=== PATIENT | male | born 1975 | race Caucasian/White ===

== ENCOUNTER 2016-08-12 21:31 | Emergency (ER) | payer OTHER ==
[2016-08-12 22:03] VITALS: RESP 18; TEMP 98.2
[2016-08-12] MEDS ORDERED: Lidocaine 1% 10 MG/ML - 20 ML VIAL SUBCUT ONE (22:49)
[2016-08-12] MEDS ORDERED: TRIAMCINOLONE ACETONIDE 40 MG/1 ML IAC ONE (22:49)
--- NOTE | 2016-08-12 23:19 | PDOC ---
Upper Ext Injury HPI - General Chief Complaint: Upper Extremity Problem/Injury Stated Complaint: LEFT ELBOW PAIN Date Seen by Provider: 08/12/16 Time Seen by Provider: 21:50 Source: POSITIVE: Patient Exam Limitations: POSITIVE: No limitations Nurse's Notes Reviewed & Considered: Yes - History of Present Illness Initial Comments: The patient is a 41 year old male. He states that for the past 4 months he has had pain to the medial aspect of his left elbow. 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 He states that his pain is often exacerbated by lifting furniture. He states he had some paresthesias of the left hand and forearm at the onset of his symptoms, but none now. No motor deficits. Have you received a tetanus shot in the past 10 years?: No Body Location Affected: REPORTS: Upper Extremity (L) Timing: REPORTS: Constant, Getting Worse Duration: >1 week (4 months according to patient) Severity: Moderate Quality: REPORTS: "Pain" Context of Injury: REPORTS: Direct Blow (Possibly, as above) Modifying Factors: REPORTS: Other (Exacerbated by direct palpation) Associated Symptoms: DENIES: Arm (R), Arm (L), Tingling Distally, Numbness Distally, Loss of Feeling, Loss of Power, Other Any Prior Injuries Related to Current Complaint?: No - Patient Home Medications Home Medications: Home Medications Sumatriptan Succinate [Imitrex] 25 mg PO PRN PRN 01/27/12 Albuterol Sulfate [Proair Hfa] 1 puff INH Q4-6H #1 puff 06/22/16 - Patient Allergies Allergies/Adverse Reactions: Allergies Allergy/AdvReac Type Severity Reaction Status Date / Time No Known Allergies Allergy Verified 08/12/16 21:58 Past Medical History - heen HEENT History: Other (please comment) Additional HEENT History: WEARS GLASSES Cardiovascular History: Hypertension, Other (please comment) Additional Cardiovasular History: pt states heart murmur. STATES HTN AND SUPPOSE TO TAKE MEDS BUT DOESN'T Respiratory History: Denies History, Other (please comment) Additional Respiratory History: smoker Gastrointestinal History: Denies History Genitourinary History: Denies History Endocrine History: Denies History Musculoskeletal History: Back Pain, Carpal Tunnel, Other (please comment) Prosthesis or Implant: No Additional Musculoskeletal History: CHRONIC LOWER BACK PAIN Neurological History: Migraines Blood Disorders: Denies History Psychiatric History: Depression, Other (please comment) Additional Psychiatric History: Borderline personality disorder--followed by Dr. Mclaughlin in [place], for which he takes Lamictal and Depakote. History of Sexually Transmitted Diseases: No Male Reproductive History: Denies History Cancer History: Denies History In Past Year Been Physically Harmed or Verbally Threatened: No History of MDRO: Yes Other Type of MDRO: IN GROIN AND LEFT 5TH FINGER History of Other Communicable Diseases: No Tobacco Use: Current Every Day Smoker Alcohol Use: Rarely Substance Use Type: None Previous Surgical History: Yes Type / Date of Surgery: carpal tunnel bilat Anesthesia Reactions: No Malignant Hyperthermia: No Significant Family History: Cancer, Other (please comment) Additional Family History: BROTHER HAD ARRYTHMIA WHEN YOUNG Past Medical History Reviewed: Reviewed - No Changes ROS - Limitations ROS Limitations: No Limitations Constitution: REPORTS: Denies Symptoms Cardiovascular: REPORTS: Denies Cardiac Symptoms Respiratory: REPORTS: Denies Resp Symptoms Neurological: REPORTS: Denies Neuro Symptoms Gastrointestinal: REPORTS: Denies GI Symptoms Endocrine: REPORTS: Denies Symptoms Musculoskeletal: REPORTS: Joint Pain (Left elbow, over medial epicondyles) Genitourinary: REPORTS: Denies Symptoms Eyes: REPORTS: Denies Symptoms ENT: REPORTS: Denies Symptoms Skin: REPORTS: Denies Skin Symptoms Lympathic: REPORTS: Denies Lympathic Symptoms Immunologic: POSITIVE: Denies Symptoms Psychiatric: POSITIVE: Denies Psych Symptoms Upper Ext Injury Exam - General Appearance General Appearance: POSITIVE: Alert, Cooperative, No Acute Distress, No Evidence of Trauma - Extremities Upper Extremity: POSITIVE: Normal Color, Normal ROM, Normal Temperature, Soft Tissue Tenderness, Bony Tenderness (Over the medial epicondyles), See Diagram. NEGATIVE: Non-Tender (Tender on palpation over medial epicondyles), Swelling, Ecchymosis, Deformity, Skin Intact, Erythema, Limited ROM, Pulse Deficit, Snuff Box Position Tender, Axial Thumb Load Pain Neurovascular/Tendon: POSITIVE: Sensation Normal, Motor Normal, No Vascular Compromise Skin: POSITIVE: Warm, Dry - Neck / Back Neck/Back: POSITIVE: Normal Inspection, Non-Tender, Painless ROM - Respiratory / CVS Respiratory / CVS: POSITIVE: Chest Non Tender, No Ecchymosis, Breath Sounds Normal, No Respiratory Distress, Heart Sounds Normal, Regular Rate/Rhythm Peripheral Pulses: Radial (R): 2+, Radial (L): 2+ Procedures - Additional Procedures Additional Procedures: Other (Point of maximum tenderness was located over the left medial epicondyles. This point was injected with about 2 mL of 1% lidocaine. After local anesthesia with lidocaine, this point over the medial epicondyles was injected with 40 mg of Kenalog. Patient achieved relief following this injection.) Images - Upper Extremities Upper Extremities: 1 - Pain on palpation over left medial epicondyles 2 - Pain on palpation over left medial epicondyles Upper Ext Injury Progress - Results Reviewed by me Xrays/CTs/US Reviewed by me: Yes Discussed with Radiologist: No Radiology Findings: X-ray left elbow normal - Patient's Progress Pain Medication Addressed: POSITIVE: Yes (Recommended ibuprofen, 800 mg every 8 hours as necessary) School/Work Release Addressed: POSITIVE: Yes (May return to work) Re-Examine Time: 23:00 Re-Examine Comment: Good pain relief after injection as above over her left medial epicondyle Status: POSITIVE: Improved, Re-Examined - Consult Counseled: POSITIVE: Patient, Family, RE: Radiology Results, RE: DX, RE: Need for F/U Patient Care Time - Estimated PCT Patient Care Time (In Minutes): 30 Vital Signs - Recent Vital Signs Vital Signs: Vital Signs (Last 8 hours) Temp Pulse Resp BP Pulse Ox 08/12/16 21:42 98.2 F 74 18 198/124 97 - VS Reviewed Vital Signs Reviewed: Yes Discharge Clinical Impression: Epicondylitis elbow, medial Discharge Disposition: Discharged to Home Condition: Stable Patient Instructions Given at Discharge: Tennis Elbow (ED) Additional Instructions: You have what is known as medial epicondylitis, also known as cultures elbow, which is similar to tennis elbow, except that it occurs on the inner aspect of the elbow. This is an inflammatory state over a bony prominence known as the medial epicondyles. We have injected over the medial epicondyle with an anesthetic and steroid, and, hopefully, this will afford you relief. Take ibuprofen, 800 mg, every 8 hours as necessary. Please wear an elbow support. Warm moist compresses may also be useful. Follow-up with your primary care provider. Return here anytime if condition worsens in any way Follow Up With: NONE,NONE [Primary Care Provider] - (Instructions as above. Return here as necessary. Follow-up with your primary care provider.)
--- NOTE | 2016-08-13 08:53 | DI ---
LEFT ELBOW, 08/12/2016 10:08 PM: Clinical History: Left elbow pain. Previous Exam: 04/28/2016. 3 views are submitted. There is no acute soft tissue, osseous, or joint abnormality. Reading: Normal left elbow exam. There has been no interval change.
== END 2016-08-12 23:22 | disposition home or self-care (01) ==
LOC: ER 21:31
DX: M77.02 Medial epicondylitis, left elbow (principal); M25.522 Pain in left elbow
CPT/HCPCS: 73080; 99282; J2001

== ENCOUNTER → 2016-12-15 | Outpatient (CLI) | payer OTHER ==
--- NOTE | 2016-12-15 15:24 | DI ---
History: Right foot pain Comparison: None Findings: Adjacent to the base of proximal phalanx, second toe, there is a roughly 3 x 4 mm density which could represent a small fracture fragment. I cannot identify a donor site and this may be an incidental fi nding. Clinical correlation with point tenderness is needed No other indication of fracture No malalignment No destructive or degenerative changes Impression: Adjacent to the base of proximal phalanx, second toe, there is a roughly 3 x 4 mm density which could represent a small fracture fragment. I cannot identify a donor site and this may be an incidental fi nding. Clinical correlation with point tenderness is needed
== END ==
LOC: RAD 10:00
PROVIDERS: ATTEND Family Medicine
DX: M79.671 Pain in right foot (principal)
CPT/HCPCS: 73630